=== PATIENT | female | born 1970 | race Caucasian/White ===

== ENCOUNTER 2020-01-11 12:30 | Emergency (ER) | payer OTHER, SELFPAY ==
--- NOTE | 2020-01-11 12:36 | ED.GENADULT ---
HPI - General Adult General Chief complaint: Upper Respiratory Infection Stated complaint: Sore throat Time Seen by Provider: 01/11/20 12:36 Source: patient and RN notes reviewed History of Present Illness HPI narrative: Patient is a 49-year-old female who presents the urgent care with complaints of a sore throat since . Patient has admitted to sleeping with a fan on the window. States her right side hurts worse than the left. States that she has been using [place] and Chloraseptic spray. Patient also reports of having a history of hypertension in which she does not take medications for. Patient denies of any other upper respiratory symptoms. Denies of any known fever, chills, nausea, vomiting. No other acute complaints. No acute distress noted. Patient read the plan of care. Related Data Home Medications Medication Instructions Recorded Confirmed No Home Medications 05/08/19 05/08/19 Allergies Allergy/AdvReac Type Severity Reaction Status Date / Time lisinopril Allergy Unknown SWELLS ALL Verified 01/11/20 12:49 OVER Review of Systems Review of Systems: Narrative: CONSTITUTIONAL: Denies fever, chills, or sweats. EYES: Denies visual changes, redness, or discharge. ENT: Reports of sore throat CARDIOVASCULAR: Denies chest pain, palpitations, or edema. RESPIRATORY: Denies cough or dyspnea. GASTROINTESTINAL: Denies abdominal pain, nausea, vomiting, or diarrhea. GENITOURINARY: Denies dysuria or hematuria. SKIN: Denies rash or itching. MUSCULOSKELETAL: Denies back pain, joint pain, or myalgia. NEUROLOGIC: Denies headache, numbness, or weakness. All other systems reviewed are negative, except as documented in HPI. PMFSH Social History Social History Smoking status: Current every day smoker Comments At the time of my signature, I reviewed and agree with the nursing past medical, surgical, social, and family history. There is no relevant family history pertinent to the patient complaint. Exam Narrative: Exam Narrative: GENERAL: This is a well-nourished, well-developed patient, in no apparent distress. HEAD: normocephalic, atraumatic. EYES: PERRL. Sclera clear/white. Vision is grossly intact. EARS: External ears normal, auditory canals clear and without drainage, TMs normal without perforation. Hearing grossly intact. NOSE: External nose normal with no obvious nasal discharge, nares without redness, no rhinorrhea. THROAT: Mucous membranes moist, posterior pharynx clear. NECK: Neck supple, non-tender without lymphadenopathy, masses or thyromegaly. CARDIOVASCULAR: Regular rate and rhythm without murmurs, gallops, or rubs. RESPIRATORY: Clear to auscultation. Breath sounds equal bilaterally. No wheezes, rales, or rhonchi. SKIN: warm, intact with no suspicious lesions or rash, good texture and turgor. NEURO: awake, alert, and oriented to person, place and time. There were no obvious focal neurologic abnormalities. EXTREMITIES: No clubbing, cyanosis, or edema. Course Vital Signs Vital signs: Vital Signs Temperature 97.4 F L 01/11/20 12:40 Pulse Rate 70 01/11/20 12:40 Respiratory Rate 20 01/11/20 12:40 Blood Pressure 187/86 H 01/11/20 12:40 Pulse Oximetry 97 01/11/20 12:40 Temperature 97.4 F L 01/11/20 12:40 Pulse Rate 70 01/11/20 12:40 Respiratory Rate 20 01/11/20 12:40 Blood Pressure 187/86 H 01/11/20 12:40 Pulse Oximetry 97 01/11/20 12:40 Reviewed?patient is informed that they may have pre-hypertension or hypertension based on a blood pressure reading in the department. I recommend the patient call the primary care provider listed on their discharge instructions or a physician of their choice this week to arrange follow-up for further evaluation of possible pre-hypertension or hypertension. Medical Decision Making MDM Narrative Medical decision making narrative: Reviewed lab results with the patient. She is aw
[2020-01-11 12:40] VITALS: BP 187/86; PULSE 70; RESP 20; TEMP 36.3; O2SAT 97
== END 2020-01-11 13:09 | disposition home or self-care (01) ==
PROVIDERS: Emergency Provider Nurse Practitioner Family
DX: J02.9 Acute pharyngitis, unspecified (principal); F17.200 Nicotine dependence, unspecified, uncomplicated
CPT/HCPCS: 87081; 87880; 99213; G0463

== ENCOUNTER 2021-05-06 14:43 | Emergency (ER) | payer OTHER, SELFPAY ==
[2021-05-06 14:52] VITALS: BP 210/116; PULSE 66; RESP 20; TEMP 36.7; O2SAT 99
== END 2021-05-06 15:45 | disposition left against medical advice (07) ==
LOC: EXPBETH 14:46
PROVIDERS: Emergency Provider Registered Nurse; PCP Nurse Practitioner Family
DX: Z53.21 Procedure and treatment not carried out due to patient leaving prior to being seen by health care provider (principal)
CPT/HCPCS: 87081; 87880; 99199

== ENCOUNTER 2023-02-17 12:50 | Emergency (ER) | payer OTHER, SELFPAY ==
--- NOTE | ~2023-02-17 | XR_ITS ---
XR chest 2V DATE: 02/17/2023 13:16 INDICATION: Cough and wheezing since 02/03/2023. Smoker. TECHNIQUE: 2 views COMPARISON: None FINDINGS: Normal heart size. Aortic arch calcification. No hilar or mediastinal enlargement. The lungs are mildly hyperinflated. No pulmonary infiltrate or consolidation, pleural effusion or pul monary vascular congestion or pneumothorax. IMPRESSION: No active cardiopulmonary disease Aortic calcification Reviewed, dictated and finalized at location A.
[2023-02-17 13:03] VITALS: BP 265/103; PULSE 99; RESP 18; TEMP 36.6; O2SAT 95
[2023-02-17 13:30] VITALS: BP 160/108; PULSE 82; RESP 20; O2SAT 98
--- NOTE | 2023-02-17 14:21 | ED.GENADULT ---
HPI - General Adult General Chief complaint: Shortness of Breath/Dyspnea Stated complaint: Chest Congestion/Shortness of Breath Source: patient Mode of arrival: ambulatory Limitations: no limitations History of Present Illness HPI narrative: Patient presents for evaluation of sick symptoms since 02/03/2023. She reports productive cough of clear sputum, shortness of breath and mucopurulent discharge from the nares. No fever, chills, nausea, vomiting, diarrhea. No recent sick contacts to her knowledge. She smokes 1/2 ppd. She has tried theraflu and denise-seltzer for her symptoms. She has history of hypertension but stopped taking medications for her BP. Denies any chest pain. States she has tried multiple antihypertensives but medications lose efficacy after about one month of being on therapy. Related Data Home Medications Medication Instructions Recorded Confirmed atorvastatin 10 mg tablet 10 mg PO DAILY 05/06/21 05/06/21 buspirone 10 mg tablet 10 mg PO BID 05/06/21 05/06/21 clonidine HCl 0.1 mg tablet 0.1 mg PO DAILY 05/06/21 05/06/21 hydroxyzine pamoate 25 mg capsule 25 mg PO DAILY 05/06/21 05/06/21 losartan 100 mg tablet 100 mg PO DAILY 05/06/21 05/06/21 metoprolol succinate 50 mg 50 mg PO DAILY 05/06/21 05/06/21 tablet,extended release 24 hr Allergies Allergy/AdvReac Type Severity Reaction Status Date / Time lisinopril Allergy Unknown SWELLS ALL Verified 05/06/21 16:11 OVER Review of Systems Review of Systems: CONSTITUTIONAL: Denies fever, chills, or sweats. EYES: Denies visual changes, redness, or discharge. ENT: Reports mucopurulent discharge from the nares and nasal congestion. Denies sore throat or otalgia. CARDIOVASCULAR: Denies chest pain, palpitations, or edema. RESPIRATORY: Reports productive cough, wheezing and SOB GASTROINTESTINAL: Denies abdominal pain, nausea, vomiting, or diarrhea. GENITOURINARY: Denies dysuria or hematuria. SKIN: Denies rash or itching. MUSCULOSKELETAL: Denies back pain, joint pain, or myalgia. NEUROLOGIC: Denies headache, numbness, dizziness, or weakness. PSYCHIATRIC: Denies anxiety or depression. [facility] Past Medical History Medical History (Updated 02/17/23 @ 14:35 by Vance Last, [facility] [place]) HTN (hypertension) Surgical History Surgical History H/O tubal ligation Family History Family History Mother Family history non-contributory Social History Social History Smoking packs per day: 0.5 Smoking cigarettes per day: 10.0 Smoking status: Current every day smoker Substance use: never Gender identity (if verbalized by the patient): Female Sexual Orientation (if Verbalized by the Patient): Straight or Heterosexual Spiritual care concerns: No Exam Narrative: GENERAL: WELL-APPEARING, WELL-NOURISHED, AND IN NO ACUTE DISTRESS. HEAD: NORMOCEPHALIC, ATRAUMATIC. EYES: PERRLA AND EOMI. ENT: NARES CLEAR, NO RHINORRHEA OR EPISTAXIS. MUCOUS MEMBRANES MOIST. OROPHARYNX WITHOUT TONSILLAR HYPERTROPHY EXUDATE OR OTHER LESIONS. BILATERAL TMS PEARLY BANG NONBULGING NECK: SUPPLE. NO ADENOPATHY OR MASSES. NO CAROTID BRUITS OR JVD CHEST: COUGH PRESENT ON EXAM. WHEEZING NOTED IN BILATERAL LUNG PADRON POSTERIORLY HEART: REGULAR RATE AND RHYTHM. NO MURMUR HEARD. NORMAL PERIPHERAL PULSES. ABDOMEN: SOFT, NONTENDER, NONDISTENDED, NORMAL ACTIVE BOWEL SOUNDS. EXTREMITIES: NORMAL RANGE OF MOTION. NO EDEMA. SKIN: WARM, DRY, NO RASH. NEURO: NO FOCAL DEFICITS. ALERT AND ORIENTED X3. PSYCH: NORMAL MOOD AND AFFECT. Course Course Emergency Course: This is a 52-year-old female who presented for evaluation of sick symptoms. Her blood pressure was initially grossly elevated. Several rechecks were performed and were improved but still of concern. She did not experience any chest p
[2023-02-17 14:32] VITALS: BP 190/118; PULSE 82; RESP 20; O2SAT 94
== END 2023-02-17 14:40 | disposition left against medical advice (07) ==
PROVIDERS: Emergency Provider Nurse Practitioner; PCP Nurse Practitioner Family
DX: J32.9 Chronic sinusitis, unspecified (principal); I10 Essential (primary) hypertension; F17.210 Nicotine dependence, cigarettes, uncomplicated; Z20.822 Contact with and (suspected) exposure to COVID-19
CPT/HCPCS: 71046; 87426; 87804; 99213; C9803; G0463

== ENCOUNTER 2025-05-06 11:48 | Emergency (ER) | payer SELFPAY ==
[2025-05-06 11:53] VITALS: BP 199/85; PULSE 107; RESP 20; TEMP 37.7; O2SAT 96
--- NOTE | 2025-05-06 12:07 | ED.FEMALEGU ---
HPI - Female Genitourinary General Chief complaint: Urogenital-Female Stated complaint: UTI Time Seen by Provider: 05/06/25 12:07 Source: patient, RN notes reviewed and old records reviewed Mode of arrival: ambulatory Limitations: no limitations History of Present Illness HPI Narrative: 54 year old female who presents to express care with complaints of 3 week duration of bilateral flank pain. Patient reports that since [place] she [place]rick[place] noted bood in her urine and has had dribbling of urine, frequency, urgency and burning with urination. Patient reports that she does not have insurance that why it took her so long to come in to seek care. Patient has elevated blood pressure and states it usually runs high reports that she has not been on any blood pressure medication for some time due to lack of insurance and side effects of previous medications. Patient reports that she has been drinking water and cranberry juice and has taken OTC Cystix MD elicited complaint: UTI Pertinent past history: other (UTI and hypertension) Onset (ago): week(s) (3) Location of symptoms: urethra and flank (bilateral) Severity: moderate Consistency: progressively worsening Vaginal discharge: none Vaginal bleeding: none Treatment prior to arrival: OTC urinary analgesics (Cystix) Related Data Allergies Allergy/AdvReac Type Severity Reaction Status Date / Time lisinopril Allergy Unknown SWELLS ALL Verified 05/06/25 12:06 OVER Review of Systems Review of Systems: CONSTITUTIONAL: Denies fever, chills, or sweats. CARDIOVASCULAR: Denies chest pain, palpitations, or edema. RESPIRATORY: Denies cough or dyspnea. GASTROINTESTINAL: Denies abdominal pain, nausea, vomiting, or diarrhea. GENITOURINARY: Reports dysuria, frequency, urgency. Reports bilateral flank pain and hematuria. SKIN: Denies rash or itching. MUSCULOSKELETAL: Denies back pain or myalgia. reports CVA tenderness bilateral NEUROLOGIC: Denies headache All systems reviewed & are unremarkable except as noted in HPI and below PMFSH Past Medical History Medical History Urinary tract infection HTN (hypertension) Surgical History Surgical History H/O tubal ligation Family History Family History Mother Family history non-contributory Social History Social History Smoking packs per day: 0.5 Smoking cigarettes per day: 10.0 Smoking status: Current every day smoker Substance use: never Gender identity (if verbalized by the patient): Female Sexual Orientation (if Verbalized by the Patient): Straight or Heterosexual Spiritual care concerns: No Comments At time of signature, agree with nursing past medical, surgical, social and family history. There is no relevant family history pertinent to the presenting complaint Exam Narrative: GENERAL: ill-appearing, well-nourished, and in no acute distress. HEAD: Normocephalic, atraumatic. NECK: Supple. no lymphadenopathy CHEST: Clear to auscultation. No respiratory distress. no cough noted SAO2 96% on room air HEART: Regular rate and rhythm. No murmur heard. Normal peripheral pulses. ABDOMEN: Soft, nontender, nondistended, normal active bowel sounds. Positive for bilateral CVA tenderness EXTREMITIES: Normal range of motion. No edema. SKIN: Warm, dry, no rash. NEURO: No focal deficits. Alert and oriented x3.denies any hheadache or dizziness Course Course Level of Care: Express Care Visit Vital Signs Vital signs: Vital Signs Temperature 37.7 C H 05/06/25 11:53 Pulse Rate 107 H 05/06/25 11:53 Respiratory Rate 20 05/06/25 11:53 Blood Pressure 199/85 H 05/06/25 11:53 Pulse Oximetry 96 05/06/25 11:53 Oxygen Delivery Room Air 05/06/25 11:53 Temperature 37.7 C H 05/06/25 11:53 Pulse Rate 107 H 05/06/25 11:53 Respiratory Rate 20 05/06/25 11:53 Blood Pressure 199/85 H 05/06/25 11:53 Pulse Oximetry 96 05/06/25 11:53 Oxygen Delivery Room Air 05/06/25 11:53 reviewed MDM MDM Narrative Medical decision making narrative: 54 year old female with fever and bilateral flank pain and also urinary burning frequency for 3 week duration. Will treat with antibiotic with instructions given to patient to go to ED if increase symptoms and fevers with understanding voiced. Discussed improtance of blood pressure control and states she is going to see what is issue with her insurance and follow up with her PCP in regards to elevated blood pressure; Differential Diagnosis Differential Diagnosis: Differential diagnostic considerations for female urogenital? issues include urinary tract infection, bacterial vaginosis, cervicitis, ovarian cyst, vaginitis, STI exposure, ovarian torsion, ectopic , cyst of Bartholin?s gland, cystitis, dysmenorrhea., pyelonephritis? Lab Data MDM Lab Attestation statement: I personally reviewed the patient's lab results. Lab results narrative: urine dip glucose negative, bilirubin 1+ ketones negative specific gravity 1.025, blood 2+, pH 6.0, protein 3+, urobilinogen 1.0, nitrite positive, leukocyte 2+ color riky cloudy Labs: Lab Results 05/06/25 Range/Units 12:08 POC Urine Color Riky POC Urine Clarity Cloudy POC Urine pH 6.0 POC Ur Specif [place] 1.025 POC Urine Protein 3+ (Negative) POC Ur Glucose (UA) Negative (Negative) POC Urine Ketones Negative (Negative) POC Urine Blood 2+ (Negative) POC Urine Nitrite Positive (Negative) POC Urine Bilirubin 1+ (Negative) POC Urine Urobilinogen 1.0 POC U Leukocyte Esteras 2+ (Negative) reviewed Critical Care Time Critical Care Time Critical Care Time: No Discharge Plan Discharge Clinical Impression: Urinary tract infection, Hypertension, uncontrolled Patient Disposition: Home Condition: Stable Instructions: Antibiotic Form, Urinary Tract Infection in Women (ED) Additional Instructions: Increase fluids especially cranberry juice and water Avoid caffeine and carbonated beverages Antibiotic as directed Tylenol/ibuprofen for pain or fever Follow-up with her primary care provider if further problems or concerns Recheck if you have fever over 101, nausea and vomiting. If your symptoms persist, change or worsen significantly before you can contact your personal physician then please, without delay, go to the emergency department for further evaluation. Follow-up with PCP in 7-10 days or sooner if needed Follow up with PCP soon in regards to your blood pressure which is elevated above threshold for referral. Blood pressure above 120/80 may indicate pre-hypertension.199/85 please follow up with PCP Patient Language: Japanese Prescriptions: New amoxicillin-pot clavulanate 875-125 mg tablet 1 tablet PO Q12H Qty: 20 0RF Rx Instructions: take all doses of oral antibiotic, recommend eating activa yogurt or taking probiotic while on this medication. Follow-up/Referrals: PHYSICIAN,AUTOMOTIVE SERVICE ASSISTANT [Primary Care Provider, Internal Medicine] Time of Disposition: 12:39 Quality [place] Coma Scale Eyes: Open Verbal: Oriented and Alert Motor: Follows Commands Hugh Coma Total Score: 15
[2025-05-06 12:10] LABS: EDUAAPPEAR Cloudy; EDUABILI 1+ (Negative); EDUABLOOD 2+ (Negative); EDUACOLOR1 Amber; EDUAGLUCOSE Negative (Negative); EDUAKETONE Negative (Negative); EDUALEUKO 2+ (Negative); EDUANITRATE Positive (Negative); EDUAPH 6.0; EDUAPROTEIN 3+ (Negative); EDUASPGRAVITY 1.025; EDUAUROBILI 1.0
--- OUTSIDE RECORDS SUMMARY | 2025-05-06 13:16 | XMS_ITS | Clinical Summary ---
Author Organization [facility] Address [address] [place] [address] Care Team Providers Care Map Maker Name Role Phone Unavailable Primary Care Provider Unavailabl e Source Comments [facility],non-owned Affiliates and Associated Physician Practices is amultiple site organization consisting of ambulatory clinics and hospital sitesin [place], [place], [place] and [place]. This disclosure is being madepursuant to the Care Everywhere program and may not contain all information available regarding this patient. Last updated 18.[facility] Allergies Active Allergy Reactions Criticality Noted Date Comments Lisinopril Unknown 02/22/2018 Social History Tobacco Use Types Packs/Day Years Used Date Smoking Tobacco: Never Assessed Comments Unknown Sex and Gender Information Value Date Recorded Sex Assigned at Not on file Legal Sex Female 12:21 PM CDT Gender Identity Not on file Sexual Orientation Not on file Plan of Treatment Health Maintenance Due Date Last Done Comments COLOGUARD (AGES 45-75) - COL ON CA SCREENING 1972 COLON MONITORING 1972 COLONOSCOPY - COLON CA SCREENING 1972 CT COLONOGRAPHY - COLON CA SCREENING 1972 Colorectal Cancer Screening 1972 FIT - COLON CA SCREENING 1972 FLEX SIG - COLON CA SCREENING 1972 LIPID TESTING 1972 MAMMOGRAM 1972 HIV SCREENING 09/15/1987 HEPATITIS C SCREENING 09/10/1990 DTAP/TDAP/TD VACCINES (1 - Tdap) 09/15/1991 HEPATITIS B VACCINE (1 of 3 - 19+ 3-dose series) 09/15/1991 PAP SMEAR 1993 Cervical Cancer Screening 2002 PAP with HPV 2002 PNEUMOCOCCAL VACCINE 50+ (1 of 1 - PCV) 2022 ZOSTER VACCINE (1 of 2) 2022 DEPRESSION SCREENING 06/04/2024 COVID-19 VACCINE (2024-2 6 season) 2025 INFLUENZA VACCINE (#1) 2025 HIB VACCINE Aged Out No longer eligi ble based on patient's age to complete this topic HPV VACCINE Aged Out No longer eligi ble based on patient's age to complete this topic MENINGOCOCCAL (Group B) VACC INE SHARED DECISION-MAKING Aged Out No longer eligibl e based on patient's age to complete this topic MENINGOCOCCAL GROUPS A/C/Y/W VACCINE Aged Out No longer eligible b ased on patient's age to complete this topic
--- OUTSIDE RECORDS SUMMARY | 2025-05-06 13:17 | XMS_ITS | Clinical Summary ---
Author Organization [facility] Address [address] [place] [address] Care Team Providers Care Cashier Credit Name Role Phone No, Physician Primary Care Provider [phone] Allergies Active Allergy Reactions Criticality Noted Date Comments Lisinopril Anaphylaxis,Swelling High 02/22/2018 Medications ibuprofen (ADVIL,MOTRIN) 800 mg tablet Take 1 tablet (800 mg total) by mouth 3 (three) times a day. 21 tablet 9 Active Additional Information Patient taking differently:800 mg oralAs needed, Informant: Self, Reported on 02/21/2021 cyclobenzaprine (FLEXERIL) 10 mg tablet Take 1 tablet (10 mg total) by mouth every 8 (eight) hours as needed for muscle spasms. 20 tablet 9 Active Additional Information Patient not taking.Reported on 02/21/2021 losartan (COZAAR) 100 mg tablet Take 100 mg by mouth daily 1 Active metoprolol XL (TOPROL-XL) 50 mg extended release tablet Take 50 mg by mouth nightly at bedtime. 1 Active cloNIDine (CATAPRES) 0.1 mg tablet TAKE BY MOUTH ONE TABLET DAILY NEEDED FOR BLOOD PRESSURE OVER 180/100 1 Active hydrOXYzine (VISTARIL) 25 mg capsule Take by mouth nightly as needed 1 Active busPIRone (BUSPAR) 10 mg tablet Take 10 mg by mouth 2 (two) times a day 1 Active atorvastatin (LIPITOR) 10 mg tablet Take 10 mg by mouth every evening 1 Active Active Problems No known active problems Surgical History Surgery Date Site/Laterality Comments TUBAL LIGATION Medical History Medical History Date Comments Hyperlipidemia Hypertension Anxiety Family History Medical History Relation Name Comments Cancer Father Cancer Father's Brother Cancer Father's Sister Relation Name Status Comments Father Father's Brother Father's Sister Social History Tobacco Use Types Packs/Day Years Used Date Smoking Tobacco: Every Day Cigarettes 1 30 Smokeless Tobacco: Never Personal Safety Answer Date Recorded Getting School Help Needed Not on file 08/03 Comments Unknown Sex and Gender Information Value Date Recorded Sex Assigned at Not on file 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 Gender Identity Not on file Sexual Orientation Not on file Last Filed Vital Signs Vital Sign Reading Time Taken Comments Blood Pressure 190/110 02/21/2021 2:49 PM CDT Pulse 65 02/21/2021 2:49 PM CDT Temperature 36.9 C (98.5 F) 02/21/2021 2:49 PM CDT Respiratory Rate 20 02/21/2021 2:49 PM CDT Oxygen Saturation 96% 02/21/2021 2:49 PM CDT Inhaled Oxygen Concentration - - Weight 78.9 kg (174 lb) 02/21/2021 2:49 PM CDT Height 160 cm (5' 3) 02/21/2021 2:49 PM CDT Body Mass Index 30.82 02/21/2021 2:49 PM CDT Plan of Treatment Not on file Insurance [facility] Care Teams Cashier Credit Relationship Specialty Start Date End Date No, Physician PCP - General 06/16/18
== END 2025-05-06 12:54 | disposition home or self-care (01) ==
PROVIDERS: Emergency Provider Registered Nurse
DX: N39.0 Urinary tract infection, site not specified (principal); I10 Essential (primary) hypertension; Z91.148 Patient's other noncompliance with medication regimen for other reason; F17.210 Nicotine dependence, cigarettes, uncomplicated
CPT/HCPCS: 81003; 87077; 87086; 87186; 99213; G0463